=== PATIENT | male | born 1970 | race Caucasian/White ===

== ENCOUNTER 2020-01-26 17:46 | Emergency (ER) | payer OTHER ==
[2020-01-26] MEDS ORDERED: TETANUS/DIPHTHERIA/PERTUSSIS 0.5 ML SYRINGE IM ONE (18:36)
--- NOTE | 2020-01-26 18:40 | ED Physician Documentation ---
History of Present Illness - Stated complaint Stated Complaint: RT FINGER LAC - Chief complaint Chief Complaint: Laceration - History obtained from History obtained from: Patient (Pt was opening a tin can and accidentally cut right index finger with edge of can. Normal sensation and flex/ext. Unsure of last td.) Review of Systems Ten Systems: 10 systems reviewed and negative PD PAST MEDICAL HISTORY - Past Medical History Cardiovascular: None Respiratory: Other Endocrine/Autoimmune: None GI: None : None HEENT: None Psych: Depression, Anxiety, Bipolar disorder Musculoskeletal: Other Derm: None - Past Surgical History Ortho: Other - Present Medications Home Medications: Ambulatory Orders Medication Instructions Recorded Confirmed Aspirin [Aspirin EC] 325 mg PO BID 11/07/15 05/13/16 Bupropion HCl [Wellbutrin] 120 mg PO DAILY 11/07/15 05/13/16 Lurasidone HCl [Latuda] 90 mg PO DAILY 11/07/15 05/13/16 Sildenafil Citrate [Viagra] 50 mg PO ONCE PRN 11/07/15 05/13/16 Glucosam/Chondr-Msm6/Manganese 1 cap PO DAILY 11/17/15 05/13/16 [Glucosamine-Chondroitin Sftgl] Ibuprofen 800 mg PO TID #20 tablet 05/13/16 - Allergies Allergies/Adverse Reactions: Allergies Allergy/AdvReac Type Severity Reaction Status Date / Time No Known Drug Allergies Allergy Verified 05/13/16 14:57 - Social History Does the pt smoke?: No Smoking Status: Never smoker Does the pt drink ETOH?: Yes Does the pt have substance abuse?: No - Immunizations Immunizations are current?: No Immunizations: TDAP >10years/unknown PD ED PE NORMAL - Vitals Vital signs reviewed: Yes - General General: Alert and oriented X 3, No acute distress, Well developed/nourished - Derm Derm: Normal color, Warm and dry, No rash, Other (3cm laceration right index finger) - Extremities Extremities: No deformity, Normal ROM s pain, No edema, Other (normal sensation, flex/ext of right index finger) - Neuro Neuro: Alert and oriented X 3 - Psych Psych: Normal mood, Normal affect Results - Vitals Vitals: Vital Signs - 24 hr 01/26/20 17:51 Temperature 36.2 C L Heart Rate 59 L Respiratory 16 Rate Blood Pressure 127/81 H O2 Saturation 100 Oxygen O2 Source Room air Procedures - Laceration (location) right index finger Wound type: Linear Neurovascular status: Sensory intact, Motor intact, Vascular intact Tendon involvement: Tendon intact Anesthesia: Lidocaine 1% with epi Wound Preparation: Hibiclens, Irrigated copiously NS Skin layer closure: Nylon, Size #-0 - enter number (5), Sutures - enter # (6) Other: Patient tolerated well Complexity: Simple PD MEDICAL DECISION MAKING - ED course Complexity details: d/w patient ED course: Pt cut index finger w/ tin can. Wound cleaned and irrigated. No tendon involvement noted. Obtained informed verbal consent for suture repair and wound sutured w/ good apprxoimation of wound. Pt to have sutures removed in 5-7 days. Return precautions discussed. Departure - Departure Disposition: 01 Home, Self Care Clinical Impression: Laceration Condition: Good Instructions: ED Laceration Hand Comments: Follow up in any clinic in 5-7 days for suture removal. Return at anytime if signs of infection such as swelling, redness, or purulent drainage.
[2020-01-26 18:52] VITALS: BP 126/80
== END 2020-01-26 18:50 | disposition home or self-care (01) ==
LOC: ED 17:46
DX: S61.210A Laceration without foreign body of right index finger without damage to nail, initial encounter (principal); W26.8XXA Contact with other sharp object(s), not elsewhere classified, initial encounter; Y93.G1 Activity, food preparation and clean up
CPT/HCPCS: 12002; 90471; 99283

== ENCOUNTER 2020-10-17 10:28 | Outpatient (CLI) | payer OTHER ==
--- NOTE | 2020-10-17 11:04 | XRAY Report ---
PROCEDURE: Lumbar Spine 2 View INDICATIONS: STRAIN OF MUSCLE, FASCIA AND TENDON OF LOWER BACK TECHNIQUE: 2 views of the lumbar spine were acquired. COMPARISON: None. FINDINGS: Bones: 5 [id number] vertebrae are present. There is normal bony alignment. No vertebral body compression fractures. No suspicious bony lesions. There is mild degenerative disc disease at L2-L3 , L3-L4 and L4-L5. Moderate facet arthropathy at L4-L5 and L5-S1. Soft tissues: Overlying bowel gas pattern is normal. Moderate amount stool in colon. No suspicious soft tissue calcifications. IMPRESSION: 1. No acute osseous abnormalities. 2. Mild degenerative disc disease and moderate facet arthropathy. 3. If pain persists, consider MRI for further evaluation. Reviewed by: Juliann Chappell MD on 10/17/2020 11:03 AM PST Approved by: Juliann Chappell MD on 10/17/2020 11:03 AM [facility] Station ID: [id number]
== END 2020-10-17 23:59 | disposition home or self-care (01) ==
LOC: DI.N 10:28
PROVIDERS: ATTEND Nurse Practitioner
DX: S39.012A Strain of muscle, fascia and tendon of lower back, initial encounter (principal); M51.36 Other intervertebral disc degeneration, lumbar region